=== PATIENT | male | born 1930 | race Caucasian/White ===

== ENCOUNTER 2019-05-07 12:11 | Emergency (ER) | payer OTHER, BC ==
[2019-05-07 13:08] VITALS: BP 152/62; PULSE 65; TEMP 98.2; BMI 21.1
--- NOTE | 2019-05-07 13:57 | PDOC ---
History of Present Illness - General Chief Complaint: Seizure Stated Complaint: SEIZURE Time Seen by Provider: 05/07/19 13:34 History Source: Patient, EMS, Longterm Records Exam Limitations: No Limitations - History of Present Illness Initial Comments: 05/07/19 14:58 89YOM with long-standing seizure disorder since youth for which he takes Keppra 1000mg bid, also with COPD on ipratroprium nasal spray, who was BIBEMS for apparent seizure at [facility] assisted living just PRINCIPAL ARCHITECT to the ED. The patient himself notes he was feeling well earlier today, came down from his room to the community room with other [facility] residents, and he remembers walking into the room but from that moment on, he has no memory. He denies preceding lightheadedness, vertigo, chest pain, palpitations, or any other symptoms. He does not recall having fallen and does not know how he might have landed, but he and EMS state that bystanders had witnessed him fall to his left. It is unknown whether he hit his head. EMS explain that he was acting completely normally for the entire duration of their care, and deny that he was acting postictal. He has a wet cough for the past few days and is supposed to see a automation mechanic tomorrow here at [facility]. The patient denies headache, neck ache, dizziness/lightheadedness, chest pain, SOB, abdominal pain, back pain, n/t/w focally, palpitations, etc. He notes one left upper arm skin tear without bleeding. He cannot recall the date of his last tetanus update. Past History - Past Medical History Allergies/Adverse Reactions: Allergies Allergy/AdvReac Type Severity Reaction Status Date / Time Penicillins Allergy Verified 05/07/19 15:03 Home Medications: Ambulatory Orders Cholecalciferol (Vitamin D3) [Vitamin D3] 1.25 mg PO WEEKLY 05/07/19 Gabapentin 300 mg PO TID 05/07/19 Ipratropium 0.02% Nebulizer [Atrovent *Nebulizer*] 0.5 mg IH DAILY 05/07/19 levETIRAcetam [Keppra Xr -] 1,000 mg PO BID 05/07/19 COPD: No - Immunization History Immunization Up to Date: Yes - Suicide/Smoking/Psychosocial Hx Smoking History: Never smoked Information on smoking cessation initiated: No Hx Alcohol Use: No Drug/Substance Use Hx: No Review of Systems - Review of Systems Able to Perform ROS?: Yes Comments:: GEN: no fever, chills, malaise, generalized weakness, or weight change HEENT: no ear pain, sore throat, vision change, or eye pain CV: apparent syncope vs seizure, no chest pain, palpitations, lightheadedness, or edema RESP: no cough, wheezing, or SOB GI: no abdominal pain, nausea, vomiting, diarrhea, constipation, or white/black/ bloody stool : no dysuria, hematuria, incontinence, retention, bleeding, or discharge MSK: no neck/back pain, muscle weakness/pain, or joint swelling/pain NEURO: apparent seizure vs syncope, no headache, seizure, vertigo, numbness, tingling, or focal weakness PSYCH: no substance use, no behavior change SKIN: skin tears, no jaundice, no rash ROS otherwise negative except as noted in HPI *Physical Exam - Vital Signs Last Vital Signs Temp Pulse Resp BP Pulse Ox 98.2 F 65 16 152/62 99 05/07/19 13:05 05/07/19 13:05 05/07/19 13:05 05/07/19 13:05 05/07/19 13:05 - Physical Exam Comments: GENERAL: very talkative, well-appearing, A/Ox4, no distress, answers questions appropriately HEENT: PERRLA, EOMI, moist mucous membranes NECK/BACK: no midline ttp, no spinal stepoff or deformity, no hematoma, full ROM , neck supple CARDIOVASCULAR: regular rate/rhythm, normal S1S2, 2/6 systolic ejection murmur, strong peripheral pulses, capillary refill <2 seconds, extremities wwp, no edema LUNGS/RESPIRATORY: no respiratory distress, CTAB GI/ABDOMEN: symmetric [id number], normoactive BS, soft, no ttp, no midline pulsatile masses : no CVA tenderness EXTREMITIES: no muscle atrophy, no acute deformity SKIN: BUE 2 cm partial thickness skin tears overlying lateral inferior deltoids which are hemostatic and are not amenable to suturing, warm and dry, no pallor, no jaundice, no rash, no bruising, no skin breakdown, no cuts, no lesions NEUROLOGICAL: GCS 15, CN II-XII grossly intact, 5/5 strength proximally and distally, no facial droop, normal gait Heart Score/ECG Review #1 Sinus rhythm, rate 69, occasional PACs, normal axis and intervals, no ischemic ST-T changes ED Treatment Course - LABORATORY CBC & Chemistry Diagram: 05/07/19 13:50 05/07/19 13:50 Medical Decision Making - Medical Decision Making Syncope: Elderly Pt p/w abrupt transient LOC with loss of postural tone, followed by spontaneous recovery, consistent with syncope. Initial Vital Signs Temp Pulse Resp BP Pulse Ox 98.2 F 65 16 152/62 99 05/07/19 13:05 05/07/19 13:05 05/07/19 13:05 05/07/19 13:05 05/07/19 13:05 Exam: As noted in Physical Exam section. DDX IBNLT: Although the patient has extensive h/o seizure disorder, the story sounds more consistent with syncope and there is definitely no evidence to say otherwise from bystanders. If syncope, possibly d/t reflex (neurocardiogenic e.g. vasovagal; situational e.g. micturition/post-tussive/post-exercise; carotid sinus hypersensitivity), cardiovascular (arrhythmia e.g. sick sinus syndrome, conduction abnormality e.g. SVT/WPW/[place]/long QT/ventricular dysrhythmia, structural heart disease e.g. valvular disease/HOCM/left atrial myxoma/NC; PE; cardiac tamponade), orthostatic hypotension (volume depletion e.g. hemorrhage/vomiting/diarrhea/diuretics; drugs ; autonomic failure), or other causes not true syncope d/t subsequent neuro deficit (TIA/CVA, SAH, seizure, metabolic/electrolyte derangement e.g. DM/DKA tend to cause gradual slide into unconsciousness), , infection/sepsis/vitals abnormalities, etc. W/U ordered: EKG CXR Head CT Labs as noted below TX ordered: IVF Patient's old age and unclear story are indications for CT head. EKG: Reviewed; results as noted in ECG Review section. CXR: Nothing acute CT Head: Nothing acute Laboratory Tests 05/07/19 05/07/19 05/07/19 13:50 13:50 13:50 WBC 6.2 RBC 3.90 L Hgb 12.6 Hct 37.2 MCV 95.5 MCH 32.3 MCHC 33.9 RDW 14.7 Plt Count 226 MPV 8.2 Absolute Neuts (auto) 4.5 Neutrophils % 72.5 Lymphocytes % 16.1 Monocytes % 5.4 Eosinophils % 5.0 H Basophils % 1.0 Nucleated RBC % 0 PT with INR 12.90 INR 1.09 Sodium 138 Potassium 5.0 Chloride 108 H Carbon Dioxide 26 Anion Gap 4 L BUN 23.0 H Creatinine 1.2 Est GFR (CKD-EPI)AfAm 62.20 Est GFR (CKD-EPI)NonAf 53.67 Random Glucose 82 Calcium 8.2 L Total Bilirubin 0.3 AST 11 L ALT 9 L Alkaline Phosphatase 88 Creatine Kinase 64 Troponin I < 0.02 B-Natriuretic Peptide Total Protein 6.8 Albumin 3.1 L Valproic Acid Blood Type Antibody Screen 05/07/19 05/07/19 05/07/19 13:50 13:50 14:30 WBC RBC Hgb Hct MCV MCH MCHC RDW Plt Count MPV Absolute Neuts (auto) Neutrophils % Lymphocytes % Monocytes % Eosinophils % Basophils % Nucleated RBC % PT with INR INR Sodium Potassium Chloride Carbon Dioxide Anion Gap BUN Creatinine Est GFR (CKD-EPI)AfAm Est GFR (CKD-EPI)NonAf Random Glucose Calcium Total Bilirubin AST ALT Alkaline Phosphatase Creatine Kinase Troponin I B-Natriuretic Peptide 361.1 Total Protein Albumin Valproic Acid 4.7 L Blood Type A POSITIVE Antibody Screen Negative 05/07/19 19:04 Per [place] Syncope Rule: Pt is high risk for ventricular dysrhythmia and/ or . Pt also at higher risk given their older age and comorbidities. The Pt is unsafe for discharge at this time. They require further hospital observation, workup, and treatment. Dr. Rangel called for admission by Dr. Soto. Blank Decision to Admit order placed to Tele Obs per ED protocol. Patient came up asking to be discharged, states he is sure this was one of his typical seizures. He has decision making capacity and is able to sign himself out AMA after thorough discussion. I do convey the risks of leaving without thorough workup including and serious morbidity. He signs out AMA and fills out paperwork but allows me to print out his instructions. *DC/Admit/Observation/Transfer Diagnosis at time of Disposition: Loss of consciousness, Skin avulsion Fall Qualifiers: Encounter type: initial encounter Qualified Code(s): W19.XXXA - Unspecified fall, initial encounter - Discharge Dispostion Disposition: AGAINST MEDICAL ADVICE Condition at time of disposition: Guarded Decision to Admit order: Yes - Referrals Referrals: Alvin Graham MD [Primary Care Provider] - - Patient Instructions Printed Discharge Instructions: DI for Syncope in Adults (Fainting) Additional Instructions: You were seen in the ER for loss of consciousness which we believe was either a seizure or fainting (syncope). We did lab work on the blood and urine, an electrocardiogram, a chest x-ray, and CT scan imaging, and we did not find any concerning abnormalities. All the symptoms had resolved by the end of your ER visit. After our assessment, we do not believe you are having a medical emergency at this time, and we believe you are safe to go home. Please stay well hydrated and eat a balanced diet. Please follow up with your primary care provider in 1-3 days. Call their clinic as soon as possible, tell them you were seen in the ER for passing out, and tell them you need an appointment. Please also follow up with your physical security engineer as soon as possible (we are giving you referral information in this information packet in case you need a new physical security engineer). If you have any new or worsening symptoms, especially another episode of fainting, palpitations, chest discomfort, shortness of breath, sweats , nausea, or other symptoms, please come back to the ER at any time (24 hours a day). If you are having severe or life threatening symptoms, or symptoms that make it unsafe to drive or have someone drive you, please call 911. - Post Discharge Activity
--- NOTE | 2019-05-07 14:50 | PDOC ---
Documentation entered by Olga Lidia Whittaker SCRIBE, acting as scribe for Marc Avitia MD. Marc Avitia MD: This documentation has been prepared by the anayeliibe, Olga Lidia Whittaker SCRIBE, under my direction and personally reviewed by me in its entirety. I confirm that the documentation accurately reflects all work, treatment, procedures, and medical decision making performed by me. Attending Attestation - Resident Resident Name: Ana Maria Cardenas - ED Attending Attestation I have performed the following: I have examined & evaluated the patient, The case was reviewed & discussed with the resident, I agree w/resident's findings & plan, Exceptions are as noted - HPI HPI: 05/07/19 14:35 The patient is an 89-year-old male from [facility], with a past medical history of seizures, who presents to the ED s/p questionable seizure. Patient lost consciousness and was found on the floor. He has no other complaints at this time. The patient denies fevers, chills, nausea, vomiting, diarrhea, or abdominal pain. Denies any chest pain, palpitations or shortness of breath. Denies any weakness, dizziness, or changes in strength or sensation. Allergies: NKA PCP: Dr. Graham - Physicial Exam PE: 05/07/19 14:02 GENERAL: Awake, alert, and fully oriented, in no acute distress. HEAD: No signs of trauma EYES: PERRLA, EOMI, sclera anicteric, conjunctiva clear ENT: Auricles normal inspection, hearing grossly normal, nares patent, oropharynx clear without exudates. Moist mucosa NECK: Nontender, no stepoffs, Normal ROM, supple, no lymphadenopathy, JVD, or masses LUNGS: Breath sounds equal, clear to auscultation bilaterally. No wheezes, and no crackles HEART: Regular rate and rhythm, normal S1 and S2, no murmurs, rubs or gallops ABDOMEN: Soft, nontender, normoactive bowel sounds. No guarding, no rebound. No masses EXTREMITIES: Normal range of motion, no edema. No clubbing or cyanosis. No cords, erythema, or tenderness NEUROLOGICAL: Cranial nerves II through XII intact. 5/5 strength and sensation in all extremities, Normal speech, normal gait, normal cerebellar function SKIN: Warm, Dry, normal turgor, no rashes or lesions noted. - Medical Decision Making 05/07/19 14:55 89 M with seizure vs syncopal episode. - labs, trop, EKG - CT head Labs and CT unremarkable. Pt signed out to oncoming attending, Dr. Soto, at 5pm, pending admission to hospital.
[2019-05-07] MEDS ORDERED: DIPHTH,PERTUSS(ACELL),TET 0.5 ML DISP.SYRIN IM ONE ×2 (15:09→15:41)
[2019-05-07 15:11] LABS: HEMATOCRIT 37.2 % (35.4-49); HEMOGLOBIN 12.6 GM/dL (11.7-16.9); LYMPH % 16.1 % (8-40); MCH 32.3 pg (25.7-33.7); MCHC 33.9 g/dl (32.0-35.9); MEAN CELL VOLUME 95.5 fl (80-96); MEAN PLT VOLUME 8.2 fl (7.5-11.1); MONO % 5.4 % (3.8-10.2); NEUT % 72.5 % (42.8-82.8); PLATELET COUNT 226 K/MM3 (134-434); RDW 14.7 % (11.9-15.9); WHITE BLOOD COUNT 6.2 K/mm3 (4.0-10.0)
[2019-05-07 15:23] LABS: INR 1.09 (0.83-1.09); PROTHROMBIN TIME (PATIENT) 12.9 SEC (9.7-13.0)
[2019-05-07 15:46] LABS: ALBUMIN 3.1 g/dl (3.4-5.0); ALK PHOS 88 U/L (45-117); ANION GAP 4 MMOL/L (8-16); BILIRUBIN,TOTAL 0.3 mg/dL (0.2-1); CALCIUM 8.2 mg/dL (8.5-10.1); CHLORIDE 108 mmol/L (98-107); CO2 26 mmol/L (21-32); CREATININE 1.2 mg/dL (0.55-1.3); GLUCOSE,RANDOM 82 mg/dL (74-106); SGOT/AST 11 U/L (15-37); SGPT/ALT 9 U/L (13-61); SODIUM 138 mmol/L (136-145); TOT PROT 6.8 g/dl (6.4-8.2)
--- NOTE | 2019-05-08 12:31 | EKG ---
Test Reason : Blood Pressure : / mmHG Vent. Rate : 069 BPM Atrial Rate : 069 BPM P-R Int : 148 ms QRS Dur : 104 ms QT Int : 384 ms P-R-T Axes : 064 -02 018 degrees QTc Int : 411 ms SINUS RHYTHM WITH PREMATURE ATRIAL COMPLEXES OTHERWISE NORMAL ECG WHEN COMPARED WITH ECG OF 07-MAY-2019 12:15, NO SIGNIFICANT CHANGE WAS FOUND Confirmed by MELISSA ORTIZ MD ([id number]) on 05/08/2019 12:31:26 PM Referred By: Confirmed By:MELISSA ORTIZ MD
--- NOTE | 2019-05-12 10:39 | EKG ---
Test Reason : Blood Pressure : / mmHG Vent. Rate : 068 BPM Atrial Rate : 068 BPM P-R Int : 118 ms QRS Dur : 104 ms QT Int : 392 ms P-R-T Axes : 040 -03 019 degrees QTc Int : 416 ms SINUS RHYTHM WITH PREMATURE ATRIAL COMPLEXES OTHERWISE NORMAL ECG NO PREVIOUS ECGS AVAILABLE Confirmed by TYLER LINARES MD ([id number]) on 05/12/2019 10:38:59 AM Referred By: Confirmed By:TYLER LINARES MD
== END 2019-05-07 21:01 | disposition left against medical advice (07) ==
LOC: JER 12:11
PROC: 3E0234Z Introduction of Serum, Toxoid and Vaccine into Muscle, Percutaneous Approach (ICD-10-PCS; principal; 2019-05-07)
DX: S41.112A Laceration without foreign body of left upper arm, initial encounter (principal); R55 Syncope and collapse; J44.9 Chronic obstructive pulmonary disease, unspecified
CPT/HCPCS: 36415; 70450-TC; 71045-TC-FY; 80053; 80164; 80177; 82550; 83880; 84484; 85025; 85610; 86850; 86900; 86901; 90471; 90715; 93005; 93010; 99284-25